=== PATIENT | female | born 2000 | race African-American/Black ===

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

== ENCOUNTER 2019-03-10 18:51 | Inpatient (IN) | payer OTHER ==
[2019-03-10 19:25] VITALS: BMI 24.3
[2019-03-10] MEDS ORDERED: hydrALAZINE 20 MG/ML VIAL SLOW IVP PRN ×2 (19:34→21:41)
--- NOTE | 2019-03-10 19:37 | PDOC.LDHP ---
Labor and Delivery H&P HPI: Patient of Dr jay CC: CTX Time: 1929 Location: Triage B HPI: 18 yo G1 at 39 weeks with CTX since 1800, no VB, no LOF, good FM. No fevers , no recent trauma. Review of Systems: Complete ROS performed and neg as per HPI Current gestational age (weeks): 39 (3 days) Due date: 03/14/19 Dating criteria: last menstrual period Grav: 1 Current complications: other (HC Chlamydia and trich this IUP RX'd with EDNA neg) Abnormal US findings: No Current medications: pre- vitamins Previous surgical history: none Allergies/Adverse Reactions: Allergies Allergy/AdvReac Type Severity Reaction Status Date / Time No Known Allergies Allergy Unverified 03/10/19 19:19 Social history: none - Physical Exam Vital signs reviewed and normal: yes (118/79 98.3 76 afebrile) General: NAD Heart: RRR Lungs: CTAB Abdomen: gravid Extremeties: no edema FHT: category [address] [place] contractions every: every 4-6 - Vaginal Exam cm dilated: 2 Effacement: 50% Station: -3 - Assessment Latent labor at full term...18 yo G1, Cat 1 FHTs - Plan Plan: observation in L&D (We will observe and recheck in 2 hours, offer pain meds prn)
[2019-03-10] MEDS ORDERED: Lidocaine 1% (PF) 30 ML VIAL SC PRN (21:41)
[2019-03-10] MEDS ORDERED: HYDROcodone/Acetaminophen 5/325 mg Tablet PO PRN ×2 (21:41)
[2019-03-10] MEDS ORDERED: NS / Oxytocin 40 units/1000ml 1,000 ML IV PRN (21:41)
[2019-03-10] MEDS ORDERED: Ondansetron PF 4 MG/2 ML Vial IVP PRN (21:41)
[2019-03-10] MEDS ORDERED: Ibuprofen 800 MG TAB PO PRN (21:41)
[2019-03-10] MEDS ORDERED: Promethazine HCl 25 MG/ML VIAL IM PRN (21:41)
--- NOTE | 2019-03-10 21:41 | PDOC.EVN ---
Event Note - Event Note Event Note: Recheck: CX now 3cm...due to patients CTX discomfort and CX change, I will admit to Dr Donovan for early labor. Dr Donovan sent a tiger text by me
[2019-03-10 22:46] LABS: Hemoglobin 12.4 g/dL (12.0-16.0); Mean Corpuscular HGB CONC 32.4 g/dL (32.0-36.0); Mean Corpuscular Hemoglobin 28.5 pg (25.0-35.0); Mean Platelet Volume 9.4 fL (7.4-10.4); Platelet Count 160 thou/uL (130-400); RBC Distribution Width 13.4 % (11.5-14.5); Red Blood Cell (RBC) Count 4.35 mill/uL (4.00-5.20); White Blood Cell (WBC) Count 7.8 thou/uL (4.8-10.8)
[2019-03-10 23:27] LABS: HBSAg Index 0.56 S/CO (0-0.99); HIV (1/2) Antibody/Antigen Non-Reactive (NonReactive); HIV 1/2 INDEX 0.07 S/CO (<1.00); Hep B Surf Ag Non-Reactive S/CO (NonReactive); Syphilis Antibody Nonreactive (Nonreactive); Syphilis Antibody Index 0.03 S/CO (<1.00 Non-Reactive)
[2019-03-11] MEDS: Butorphanol Tartrate 1 MG/ML VIAL SLOW IVP PRN ×2 (01:28→04:45)
[2019-03-11] MEDS ORDERED: Fentanyl 4 mcg/Bup 0.1% Cadd 100 ML ONE (05:36)
[2019-03-11] MEDS: Lactated Ringer's 1,000 ML IV SCH ×2 (06:30→07:42)
[2019-03-11] MEDS ORDERED: Acetaminophen 325 MG TAB PO PRN (06:35)
[2019-03-11] MEDS ORDERED: ePHEDrine/0.9% NaCl/PF SYRINGE 50 mg/10 ml SLOW IVP PRN (06:35)
[2019-03-11] MEDS ORDERED: Lactated Ringer's 500 ML IV PRN (06:35)
[2019-03-11] MEDS ORDERED: Promethazine HCl 25 MG/ML VIAL IM PRN (06:35)
[2019-03-11] MEDS ORDERED: Ondansetron PF 4 MG/2 ML Vial IVP PRN (06:35)
[2019-03-11] MEDS ORDERED: Naloxone HCl 0.4 mg/ml Vial IVP PRN ×2 (06:35)
[2019-03-11] MEDS ORDERED: diphenhydrAMINE 50 MG/ML VIAL IVP PRN (06:35)
[2019-03-11] MEDS ORDERED: Communication Order-Pharmacy FS SCH (06:45)
[2019-03-11] MEDS ORDERED: Fentanyl 4 mcg/Bupivacaine 0.1% Cassette 100 ML EPIDURAL SCH (06:45)
[2019-03-11] MEDS: NS w/ Oxytocin 10 units 500 ML IVPB SCH ×2 (06:46→08:01)
--- NOTE | 2019-03-11 08:07 | PDOC.EVN ---
Event Note - Event Note Event Note: Pt seen and examined. AROM with clear fluid. SVE 8/90/+1. FWB category I. Will augment with pitocin for slow cervical change overnight and CTX Q6-7 minutes.
[2019-03-11] MEDS: NS / Oxytocin 40 units/1000ml 1,000 ML IV SCH ×2 (09:42→12:13)
--- NOTE | 2019-03-11 10:05 | PDOC.OPDEL ---
OB Operative/Delivery Note Delivery Dr/Surgeon: [facility] Pre-Delivery Diagnosis: active labor Procedure/Post Delivery Dx: spontaneous vaginal delivery Weeks gestation: 39 Anesthesia: epidural - Findings A Sex: female - 1 min: 8 - 5 min: 10 - Additional Findings/Plan Placenta delivered: spontaneous Repaired Obstetrical Laceration: right labial (Repaired with 3.0 vicryl) Estimated blood loss: 240 ml Compilations/Other Findings: Complete and pushing. Delivered OA, posterior arm delivered first, shoulders and body easily followed. Small right labial laceration, left hymenal laceration , repaired with 3.0 vicryl. Fundus firm following delivery of placenta. Post delivery plan: routine recovery
[2019-03-11] MEDS ORDERED: hydrALAZINE 20 MG/ML VIAL SLOW IVP PRN (11:00)
[2019-03-11] MEDS ORDERED: Milk Of Magnesia 30 ML UDCUP PO PRN (11:00)
[2019-03-11] MEDS ORDERED: Benzocaine-Menthol 82.5 ML CAN TOP PRN (11:00)
[2019-03-11] MEDS ORDERED: Bisacodyl 10 MG SUPP PR PRN (11:00)
[2019-03-11] MEDS ORDERED: HYDROcodone/Acetaminophen 5/325 mg Tablet PO PRN (11:00)
[2019-03-11] MEDS ORDERED: Bupivacaine/Epinephrine 0.25% 30 ML VIAL ONE (11:11)
[2019-03-11] MEDS: Ibuprofen 800 MG TAB PO SCH ×2 (13:54→21:42)
[2019-03-11] MEDS: Ferrous Sulfate 325 MG TAB PO SCH (17:18)
[2019-03-11] MEDS: Docusate Calcium (SURFAK) 240 MG CAP PO SCH (21:45)
[2019-03-12] MEDS: Ibuprofen 800 MG TAB PO SCH ×2 (05:44→18:19)
[2019-03-12] MEDS: Docusate Calcium (SURFAK) 240 MG CAP PO SCH (08:40)
[2019-03-12] MEDS: Ferrous Sulfate 325 MG TAB PO SCH ×2 (08:40→18:20)
[2019-03-12] MEDS ORDERED: Adacel (T-DAP) 0.5 ML SYRINGE IM ONE (09:00)
[2019-03-13] MEDS: Docusate Calcium (SURFAK) 240 MG CAP PO SCH ×2 (00:51→08:19)
[2019-03-13] MEDS: Ibuprofen 800 MG TAB PO SCH ×2 (00:51→08:18)
[2019-03-13] MEDS: Ferrous Sulfate 325 MG TAB PO SCH (08:19)
[2019-03-13 08:34] VITALS: BP 114/63; TEMP 98.9
== END 2019-03-13 11:50 | disposition home or self-care (01) | DRG 807 ==
LOC: L&D/OP 18:51 → L&D 21:54 → 3SE 03-11 16:35
PROVIDERS: ADMIT Family Medicine; ATTEND Family Medicine
PROC: 10E0XZZ Delivery of Products of Conception, External Approach (ICD-10-PCS; principal; 2019-03-11)
PROC: 10907ZC Drainage of Amniotic Fluid, Therapeutic from Products of Conception, Via Natural or Artificial Opening (ICD-10-PCS; 2019-03-11)
PROC: 0UQMXZZ Repair Vulva, External Approach (ICD-10-PCS; 2019-03-11)
DX: O32.2XX0 Maternal care for transverse and oblique lie, not applicable or unspecified (principal); Z37.0 Single live birth; Z3A.39 39 weeks gestation of pregnancy; O70.0 First degree perineal laceration during delivery
CPT/HCPCS: 36415; 51702; 85027; 86780; 86850; 86900; 86901; 87340; 87389; 99285; J0595; J2001; J2590

== ENCOUNTER 2019-12-20 11:33 | Emergency (ER) | payer OTHER ==
[2019-12-20 18:48] LABS: SARS-CoV-2 MS2 Positive; SARS-CoV-2 N Gene Negative; SARS-CoV-2 S Gene Negative; SARS-CoV-2 orf1ab Negative
== END 2019-12-20 12:44 | disposition home or self-care (01) ==
LOC: ERS 11:33
DX: Z20.828 Contact with and (suspected) exposure to other viral communicable diseases (principal)
CPT/HCPCS: 87635; 99283; U0003

== ENCOUNTER 2020-01-23 17:43 | Emergency (ER) | payer OTHER, SELFPAY ==
[2020-01-23 18:10] LABS: Bilirubin Negative (Negative); Blood, Urine Negative (Negative); Clarity Clear (Clear); Glucose, Urine (Dipstick) Normal (Negative); Leukocyte Negative Leu/uL (Negative); Nitrite Negative (Negative); Protein, Urine (Dipstick) 10 mg/dL (Neg-Trace); Urobilinogen 6 mg/dL (Less than 2)
[2020-01-23 18:14] LABS: Pregnancy Test - Urine (BHCG) Negative (Negative); Pregu Control Background? CLEAR/WHITE (CLR/WHITE); Pregu Control Bar Appear? YES (CONTROL BAR); Specific Gravity 1.028 (1.002-1.036)
[2020-01-23 18:32] LABS: #Basophils 0.1 thou/uL (0.0-0.2); #Eosinphils 0.2 thou/uL (0.0-0.7); #Lymphocytes 3.1 thou/uL (1.20-3.40); #Monocytes 0.6 thou/uL (0.11-0.59); %Basophils 1.5 % (0.0-1.0); %Eosinophils 2.2 % (0.0-10.0); %Lymphocytes 38.6 % (28.0-48.0); %Monocytes 7.1 % (0.0-4.0); %Neutrophils 50.7 % (31.0-61.0); Hemoglobin 13.2 g/dL (12.0-16.0); Mean Corpuscular HGB CONC 33.5 g/dL (32.0-36.0); Mean Corpuscular Hemoglobin 30.1 pg (25.0-35.0); Mean Corpuscular Volume 89.7 fL (78.0-98.0); Mean Platelet Volume 7.6 fL (7.4-10.4); Platelet Count 248 thou/uL (130-400); RBC Distribution Width 12.8 % (11.5-14.5); Red Blood Cell (RBC) Count 4.39 mill/uL (4.00-5.20); White Blood Cell (WBC) Count 7.9 thou/uL (4.8-10.8)
[2020-01-23 18:59] LABS: ALT (SGPT) 8 U/L (8-55); AST (SGOT) 13 U/L (5-34); Alkaline Phosphatase 71 U/L (40-100); Anion Gap 12 mmol/L (10-20); BUN (Urea Nitrogen) 10 mg/dL (7.0-18.7); Bilirubin, Total 0.4 mg/dL (0.2-1.2); Calc. Creatinine Clearance 0 mL/min (70-130); Calcium 9.1 mg/dL (7.8-10.44); Carbon Dioxide 26 mmol/L (22-29); Chloride 106 mmol/L (98-107); Estimated GFR-MDRD Greater than 90; Globulin 3.9 g/dL (2.4-3.5); Glucose 83 mg/dL (70-105); Potassium 3.7 mmol/L (3.5-5.1); Protein, Total 7.9 g/dL (6.0-8.3); Sodium 140 mmol/L (136-145)
[2020-01-23] MEDS ORDERED: Morphine 4 MG/ML VIAL ONE (19:02)
[2020-01-23] MEDS ORDERED: Ondansetron PF 4 MG/2 ML Vial ONE (19:02)
--- NOTE | 2020-01-23 19:16 | ULT ---
RIGHT UPPER QUADRANT ULTRASOUND: History: 19-year-old female with Right upper quadrant pain. FINDINGS: The liver, pancreas, right kidney are normal. The gallbladder is contracted without shadowing gallsto karri, gallbladder wall thickening or pericholecystic fluid. No free fluid is seen in Shields's pouch. IMPRESSION: No significant abnormality. POS: [facility]
== END 2020-01-23 20:10 | disposition home or self-care (01) ==
LOC: ERS 17:43
DX: R10.11 Right upper quadrant pain (principal); F41.9 Anxiety disorder, unspecified
CPT/HCPCS: 36415; 76705; 80053; 81003; 81025; 83690; 85025; 87086; 96361; 96374; 96375; J2270; J2405

== ENCOUNTER 2020-11-05 10:26 | Emergency (ER) | payer OTHER | END 2020-11-05 15:00 | disposition home or self-care (01) | LOC: ERS 10:26 | DX: O99.891 Other specified diseases and conditions complicating pregnancy (principal); R10.9 Unspecified abdominal pain | CPT/HCPCS: 76815 ==

== ENCOUNTER 2023-10-04 02:31 | Emergency (ER) | payer OTHER ==
[2023-10-04 04:06] LABS: #Monocytes 0.3 thou/uL (0.11-0.59); #Neutrophils 7.2 thou/uL (1.40-6.50); %Basophils 0.3 % (0.0-1.0); %Eosinophils 0.1 % (0.0-10.0); %Lymphocytes 12.1 % (21.0-51.0); %Monocytes 3.6 % (0.0-10.0); %Neutrophils 83.7 % (42.0-75.0); Hematocrit 35.9 % (36.0-47.0); Hemoglobin 11.1 g/dL (12.0-16.0); Mean Corpuscular HGB CONC 30.9 g/dL (32.0-36.0); Mean Corpuscular Hemoglobin 27.9 pg (27.0-31.0); Mean Corpuscular Volume 90.2 fl (78.0-98.0); Mean Platelet Volume 9.7 fL (7.4-10.4); Platelet Count 172 10x3/uL (130-400); RBC Distribution Width 15.7 % (11.5-14.5); Red Blood Cell (RBC) Count 3.98 mill/uL (4.20-5.40); White Blood Cell (WBC) Count 8.6 10x3/uL (4.8-10.8)
[2023-10-04 04:27] LABS: ALT (SGPT) 9 U/L (8-55); AST (SGOT) 14 U/L (5-34); Acetaminophen Less than 10 mcg/mL (10.0-30.0); Albumin 3.6 g/dL (3.5-5.0); Alcohol 180.6 mg/dL (Less than 10); Alkaline Phosphatase 61 U/L (40-110); Anion Gap 16 mmol/L (10-20); BUN (Urea Nitrogen) 12 mg/dL (7.0-18.7); Bilirubin, Total 0.2 mg/dL (0.2-1.2); Calc. Creatinine Clearance 0 mL/min (70-130); Calcium 7.6 mg/dL (7.8-10.44); Carbon Dioxide 17 mmol/L (22-29); Chloride 113 mmol/L (98-107); Estimated GFR 116; Globulin 3.2 g/dL (2.4-3.5); Glucose 86 mg/dL (70-105); Potassium 3.9 mmol/L (3.5-5.1); Protein, Total 6.8 g/dL (6.0-8.3); Salicylate Less than 8.0 mg/dL (15.0-30.0); Sodium 142 mmol/L (136-145)
== END 2023-10-04 07:28 | disposition home or self-care (01) ==
LOC: ERS 02:31
DX: F10.129 Alcohol abuse with intoxication, unspecified (principal); Y90.6 Blood alcohol level of 120-199 mg/100 ml
CPT/HCPCS: 36415; 36416; 70450; 80053; 80307; 85025; 96360; 96361